=== PATIENT | male | born 1965 | race Caucasian/White ===

== ENCOUNTER 2021-01-07 11:29 | Inpatient (IN) | payer BC ==
[~2021-01-07] VITALS: Ht 180.3 cm; Wt 109.3 kg
[2021-01-07 11:15] VITALS: BP 140/91
[2021-01-07] MEDS ORDERED: MORPHINE SULFATE 4 MG/ML VIAL. IV PRN (11:45)
[2021-01-07] MEDS ORDERED: MORPHINE SULFATE 2 MG/ML VIAL. IVP PRN ×2 (12:15→14:45)
[2021-01-07] MEDS ORDERED: HYDROmorphone 2 MG/ML VIAL IVP PRN ×2 (12:15→14:45)
[2021-01-07] MEDS ORDERED: IV RINGERS,LACTATED 1000ML 1,000 ML IV SCH ×2 (12:15→14:45)
[2021-01-07] MEDS ORDERED: fentaNYL PF VIAL 100 MCG/2 ML VIAL IVP PRN ×4 (12:15→14:45)
[2021-01-07] MEDS ORDERED: PROCHLORPERAZINE 10 MG/2 ML VIAL. IVP PRN ×2 (12:15→14:45)
[2021-01-07] MEDS ORDERED: BUPIVACAINE-EPI 0.5% 30 ML VIAL KIT. ONE (13:59)
--- NOTE | 2021-01-07 15:00 | PDOC1 ---
History and Physical Date of Admission Date of Admission DATE: 01/07/21 TIME: 14:52 Identification/Chief Complaint Chief Complaint Appendicitis Source Source: Chart review, Patient History of Present Illness History of Present Illness Patient is a 55-year-old male with past medical history hypertension, hyperlipidemia, who presents as a transfer from [facility] ER for appendicitis. Patient reports worsening right lower quadrant abdominal pain since yesterday. He reports associated diarrhea. Denies any fever, nausea, vomiting. In the ED at [facility], WBC 10.7, CBG 111. Consult was placed to general surgery and patient was transferred for surgical intervention today. Past Medical History Past Medical History HLD, HTN Past Surgical History Past Surgical History Left fourth finger, right knee Family History Family History HTN, HLD Social History Smoke: No (Chewing tobacco) ALCOHOL: heavy Drugs: None Current Medications Current Medications Current Medications Morphine Sulfate (Morphine Sulfate) 4 mg PRN Q2HR PRN IV PAIN; Start 01/07/21 at 11:45 Fentanyl Citrate (Fentanyl 2ml Vial) 25 mcg PRN Q5MIN PRN IVP MILD PAIN 1-3; Start 01/07/21 at 12:15; Stop 01/08/21 at 12:14 Fentanyl Citrate (Fentanyl 2ml Vial) 50 mcg PRN Q5MIN PRN IVP MODERATE PAIN 4- 6; Start 01/07/21 at 12:15; Stop 01/08/21 at 12:14 Morphine Sulfate (Morphine Sulfate) 1 mg PRN Q10MIN PRN IVP SEVERE PAIN 7-10; Start 01/07/21 at 12:15; Stop 01/08/21 at 12:14 Ringer's Solution 1,000 ml @ 30 mls/hr Q24H IV ; Start 01/07/21 at 12:15; Stop 01/08/21 at 00:14 Hydromorphone HCl (Dilaudid) 0.5 mg PRN Q10MIN PRN IVP SEVERE PAIN 7-10, 2nd CHOICE; Start 01/07/21 at 12:15; Stop 01/08/21 at 12:14 Prochlorperazine Edisylate (Compazine) 5 mg PACU PRN PRN IVP NAUSEA, MRX1; Start 01/07/21 at 12:15; Stop 01/08/21 at 12:14 Fentanyl Citrate (Fentanyl 2ml Vial) 25 mcg PRN Q5MIN PRN IVP MILD PAIN 1-3; Start 01/07/21 at 14:45; Stop 01/08/21 at 14:44 Fentanyl Citrate (Fentanyl 2ml Vial) 50 mcg PRN Q5MIN PRN IVP MODERATE PAIN 4- 6; Start 01/07/21 at 14:45; Stop 01/08/21 at 14:44 Morphine Sulfate (Morphine Sulfate) 1 mg PRN Q10MIN PRN IVP SEVERE PAIN 7-10; Start 01/07/21 at 14:45; Stop 01/08/21 at 14:44 Ringer's Solution 1,000 ml @ 30 mls/hr Q24H IV ; Start 01/07/21 at 14:45; Stop 01/08/21 at 02:44 Hydromorphone HCl (Dilaudid) 0.5 mg PRN Q10MIN PRN IVP SEVERE PAIN 7-10, 2nd CHOICE; Start 01/07/21 at 14:45; Stop 01/08/21 at 14:44 Prochlorperazine Edisylate (Compazine) 5 mg PACU PRN PRN IVP NAUSEA, MRX1; Start 01/07/21 at 14:45; Stop 01/08/21 at 14:44 Allergies Allergies: Coded Allergies: No Known Drug Allergies (Unverified , 01/07/21) ROS Review of System GENERAL: No history of weight change, weakness or fevers. SKIN: No bruising, hair changes or rashes. EYES: No blurred, double or loss of vision. NOSE AND THROAT: No history of nosebleeds, hoarseness or sore throat. HEART: Denies chest pain, denies palpitations. LUNGS: Denies cough, hemoptysis, wheezing or shortness of breath. GASTROINTESTINAL: Jorge A pain, diarrhea. Denies nausea, vomiting. GENITOURINARY: Denies dysuria, frequency, urgency, hematuria. NEUROLOGIC: Denies history of numbness, tingling, tremor or weakness. PSYCHIATRIC: Denies anxiety, denies depression. ENDOCRINE: No history of heat or cold intolerance, polyuria or polydipsia. EXTREMITIES: Denies muscle weakness, joint pain, pain on walking or stiffness. Physical Exam Physical Exam General: Alert, Oriented X3, Cooperative, No acute distress HEENT: PERRLA, EOMI Lungs: Clear to auscultation, Normal air movement Heart: RRR, no murmurs Cardiovascular: S1, S2 Abdomen: Right lower quadrant abdominal tenderness. Normal bowel sounds, Soft. Extremities: No clubbing, No cyanosis Skin: No rashes, No significant lesion Neuro: Normal speech, Normal tone, Sensation intact Psych/Mental Status: Mental status NL, Mood NL Vitals Vitals Vital Signs Date Time Temp Pulse Resp B/P (MAP) Pulse Ox O2 Delivery O2 Flow Rate FiO2 01/07/21 14:38 97.2 70 26 151/85 95 Room Air 97.2 Images Images PATIENT: KIRILL BIRSCOE I ACCOUNT: [id number] : 1965 LOCATION: ER AGE: 55 SEX: M EXAM STATUS: REG ER ORD. PHYSICIAN: EVELYN HARPER MD REASON: RLQ pain onset last night, nausea/vomiting. 75mls omni 300 PROCEDURE: CT ABD PELV W/ IV CONTRST ONLY EXAMINATION: CT abdomen and pelvis with IV contrast. INDICATION:55 years, Male, right lower quadrant abdominal pain. TECHNIQUE: Axial CT images of the abdomen and pelvis were obtained. Coronal and sagittal reformatted performed. COMPARISON: None. Exposure: One or more of the following individualized dose reduction techniques were utilized for this examination: 1. Automated exposure control 2. Adjustment of the mA and/or kV according to patient size 3. Use of iterative reconstruction technique. FINDINGS: LOWER CHEST: Unremarkable ABDOMEN/PELVIS: Normal morphology and size of the liver which is enhancement. Diffuse steatosis. No suspicious focal hepatic lesion. Unremarkable gallbladder, biliary ducts, spleen, pancreas, adrenals and kidneys. Diffuse thickened appendix with 6 mm appendicolith and periappendicular fat stranding and trace amount of fluid. No extraluminal gas suggest perforation. No fluid collection to suggest abscess. No bowel dilation. Mild cecal wall, likely reactive. Few colonic diverticulosis without diverticulitis. Normal caliber abdominal aorta. Mesenteric arteries and portal vein are patent. No pneumoperitoneum or ascites. No lymphadenopathy in the abdomen or pelvis by s ize criteria. Underdistended urinary bladder which limits evaluation. Unremarkable prostate. No suspicious pelvic masses. MUSCULOSKELETAL: Small fat-containing umbilical and right inguinal hernias. Surgical clips in the left inguinal canal. No acute osseous process. Bilateral L5 pars defect. Multilevel degenerative changes in the spine. IMPRESSION: 1. Acute uncomplicated appendicitis with appendicolith. 2. Diffuse hepatic steatosis. 3. Other chronic/incidental findings, as described above. VTE Prophylaxis Ordered VTE Prophylaxis Devices: No VTE Pharmacological Prophylaxi: Yes Assessment/Plan Assessment/Plan Acute appendicitis HTN HLD Plan: Consult placed to general surgery; plans to be taken to the OR today N.p.o. until surgery Patient states pain currently well controlled with Toradol he received at [facility] ER; will provide postop pain medication. During any setbacks patient may be able to discharge tomorrow Resume home medications FEN - NPO, then ADAT PPX - Heparin FULL CODE Dispo - inpatient for above Advance Care Planning: Total time spent [id number] with patient 16 minutes in discussion with goals of care, comfort care, end-of-life care, pain management, code status; patient names is significant other (Aant Smith) as surrogate decision-maker. Justifications for Admission Other Justification OLIVIA CASANOVA MD Jan 07, 2021 15:00
[2021-01-07] MEDS ORDERED: HYDROcodone/APAP 5/325MG 1 TAB TABLET PO PRN (15:15)
[2021-01-07] MEDS ORDERED: ZOLPIDEM 5 MG TABLET. PO PRN (15:15)
[2021-01-07] MEDS ORDERED: IBUPROFEN 400 MG TABLET. PO PRN (15:15)
[2021-01-07] MEDS ORDERED: ONDANSETRON PF 4 MG/2 ML VIAL. IVP PRN (15:15)
[2021-01-07] MEDS ORDERED: ROCURONIUM 50 MG/5 ML VIAL. ONE (15:15)
[2021-01-07] MEDS ORDERED: ACETAMINOPHEN 325 MG TABLET. PO PRN (15:15)
[2021-01-07] MEDS ORDERED: MAG HYDROX/ALUMINUM HYD/SIMETH 30 ML ORAL.SUSP PO PRN (15:15)
[2021-01-07] MEDS ORDERED: fentaNYL PF VIAL 100 MCG/2 ML VIAL ONE (15:15)
[2021-01-07] MEDS ORDERED: MAGNESIUM HYDROXIDE 2,400 MG/30 ML ORAL.SUSP. PO PRN (15:15)
[2021-01-07] MEDS ORDERED: CALCIUM CARBONATE 500 MG TAB.CHEW PO PRN (15:15)
[2021-01-07] MEDS ORDERED: LABETALOL 20 MG/4 ML DISP.SYRIN. IVP PRN (15:15)
--- NOTE | 2021-01-07 15:36 | PDOC2 ---
CONSULT Date of Consult Date of Consult DATE: 01/07/21 TIME: 15:35 History of Present Illness Reason for Visit: The patient is a 55 year old male who reported to the ER at [facility] due to abdominal pain starting yesterday. The pain is located in the RLQ, The evaluation is consistent with appendicitis and he was transferred to [place]. Past Medical History Cardiovascular: HTN, Hyperlipidemia, Other (obesity) Past Surgical History Past Surgical History no abdominal surgeries Social History No (Chewing tobacco) ALCOHOL: heavy Drugs: None Current Medications Current Medications Current Medications Morphine Sulfate (Morphine Sulfate) 4 mg PRN Q2HR PRN IV PAIN; Start 01/07/21 at 11:45 Fentanyl Citrate (Fentanyl 2ml Vial) 25 mcg PRN Q5MIN PRN IVP MILD PAIN 1-3; Start 01/07/21 at 12:15; Stop 01/08/21 at 12:14 Fentanyl Citrate (Fentanyl 2ml Vial) 50 mcg PRN Q5MIN PRN IVP MODERATE PAIN 4- 6; Start 01/07/21 at 12:15; Stop 01/08/21 at 12:14 Morphine Sulfate (Morphine Sulfate) 1 mg PRN Q10MIN PRN IVP SEVERE PAIN 7-10; Start 01/07/21 at 12:15; Stop 01/08/21 at 12:14 Ringer's Solution 1,000 ml @ 30 mls/hr Q24H IV ; Start 01/07/21 at 12:15; Stop 01/08/21 at 00:14 Hydromorphone HCl (Dilaudid) 0.5 mg PRN Q10MIN PRN IVP SEVERE PAIN 7-10, 2nd CHOICE; Start 01/07/21 at 12:15; Stop 01/08/21 at 12:14 Prochlorperazine Edisylate (Compazine) 5 mg PACU PRN PRN IVP NAUSEA, MRX1; Start 01/07/21 at 12:15; Stop 01/08/21 at 12:14 Fentanyl Citrate (Fentanyl 2ml Vial) 25 mcg PRN Q5MIN PRN IVP MILD PAIN 1-3; Start 01/07/21 at 14:45; Stop 01/08/21 at 14:44 Fentanyl Citrate (Fentanyl 2ml Vial) 50 mcg PRN Q5MIN PRN IVP MODERATE PAIN 4- 6; Start 01/07/21 at 14:45; Stop 01/08/21 at 14:44 Morphine Sulfate (Morphine Sulfate) 1 mg PRN Q10MIN PRN IVP SEVERE PAIN 7-10; Start 01/07/21 at 14:45; Stop 01/08/21 at 14:44 Ringer's Solution 1,000 ml @ 30 mls/hr Q24H IV ; Start 01/07/21 at 14:45; Stop 01/08/21 at 02:44 Hydromorphone HCl (Dilaudid) 0.5 mg PRN Q10MIN PRN IVP SEVERE PAIN 7-10, 2nd CHOICE; Start 01/07/21 at 14:45; Stop 01/08/21 at 14:44 Prochlorperazine Edisylate (Compazine) 5 mg PACU PRN PRN IVP NAUSEA, MRX1; Start 01/07/21 at 14:45; Stop 01/08/21 at 14:44 Ondansetron HCl (Zofran) 4 mg PRN Q6HRS PRN IVP NAUSEA/VOMITING; Start 01/07/21 at 15:15 Al Hydroxide/Mg Hydroxide (Mylanta Plus Xs) 30 ml PRN Q3HRS PRN PO HEARTBURN / GAS; Start 01/07/21 at 15:15 Calcium Carbonate/ Glycine (Tums) 500 mg PRN Q3HRS PRN PO UPSET STOMACH; Start 01/07/21 at 15:15 Zolpidem Tartrate (Ambien) 5 mg PRN QHS PRN PO INSOMNIA, MAY REPEAT IN 1HR; S tart 01/07/21 at 15:15 Morphine Sulfate (Morphine Sulfate) 2 mg PRN Q1HR PRN IV PAIN; Start 01/07/21 at 15:15 Acetaminophen/ Hydrocodone Bitart (Lortab 5/325) 1 tab PRN Q4HRS PRN PO PAIN; Start 01/07/21 at 15:15 Acetaminophen (Tylenol) 650 mg PRN Q6HRS PRN PO Headaches, Temp > 101.5F; Start 01/07/21 at 15:15 Ibuprofen (Motrin) 400 mg PRN Q6HRS PRN PO INFLAMMATION; Start 01/07/21 at 15:15 Magnesium Hydroxide (Milk Of Magnesia) 2,400 mg PRN Q12HR PRN PO CONSTIPATION; Start 01/07/21 at 15:15 Heparin Sodium (Porcine) (Heparin Sodium) 5,000 unit Q8HRS SQ ; Start 01/08/21 at 06:00 Labetalol HCl (Normodyne Iv Push) 10 mg PRN Q2HR PRN IVP HYPERTENSION; Start 01/07/21 at 15:15 Allergies Allergies: Coded Allergies: No Known Drug Allergies (Unverified , 01/07/21) ROS General: YES: Night Sweats PSYCHOLOGICAL ROS: No: Anxiety, Behavioral Disorder, Concentration difficultie, Decreased libido, Depression, Disorientation, Hallucinations, Hostility, Irritablity, Memory difficulties, Mood Swings, Obsessive thoughts, Physical abuse, Sexual abuse, Sleep disturbances, Suicidal ideation, Other Eyes: No Blurry vision, No Decreased vision, No Double vision, No Dry eyes, No Excessive tearing, No Eye Pain, No Itchy Eyes, No Loss of vision, No Photophobia, No Scotomata, No Uses contacts, No Uses glasses, No Other HEENT: No: Heacaches, Visual Changes, Hearing change, Nasal congestion, Nasal discharge, Oral lesions, Sinus pain, Sore Throat, Epistaxis, Sneezing, Snoring, Tinnitus, Vertigo, Vocal changes, Other ALLERGY AND IMMUNOLOGY: No: Hives, Insect Bite Sensitivity, Itchy/Watery Eyes, Nasal Congestion, Post Nasal Drip, Seasonal Allergies, Other Hematological and Lymphatic: No: Bleeding Problems, Blood Clots, Blood Transfusions, Brusing, Night Sweats, Pallor, Swollen Lymph Nodes, Other ENDOCRINE: No: Breast Changes, Galactorrhea, Hair Pattern Changes, Hot Flashes, Malaise/lethargy, Mood Swings, Palpitations, Polydipsia/polyuria, Skin Changes, Temperature Intolerance, Unexpected Weight Changes, Other Gastrointestinal: No Nausea, No Vomiting, No Abdominal Pain, No Diarrhea, No Constipation, No Melena, No Hematochezia, No Other Genitourinary: No Dysuria, No Frequency, No Incontinence, No Hematuria, No Retention, No Discharge, No Urgency, No Pain, No Flank Pain, No Other, No , No , No , No , No , No , No Musculoskeletal: No Gait Disturbance, No Joint Pain, No Joint Stiffness, No Joint Swelling, No Muscle Pain, No Muscular Weakness, No Pain In:, No Swelling In:, No Other Neurological: No Behavorial Changes, No Bowel/Bladder ControlChng, No Confusion, No Dizziness, No Gait Disturbance, No Headaches, No Impaired Coord/balance, No Memory Loss, No Numbness/Tingling, No Seizures, No Speech Problems, No Tremors, No Visual Changes, No Weakness, No Other Skin: No Dry Skin, No Eczema, No Hair Changes, No Lumps, No Mole Changes, No Mottling, No Nail Changes, No Pruritus, No Rash, No Skin Lesion Changes, No Other, No Acne Physical Exam General: Alert, Oriented X3, Cooperative HEENT: Atraumatic Lungs: Clear to auscultation Abdomen: Soft (tender in RLQ) Extremities: No clubbing, No cyanosis Skin: No rashes Neuro: Normal speech Psych/Mental Status: Mental status NL MUSCULOSKELETAL: No deformity Vitals VITALS Vital Signs Date Time Temp Pulse Resp B/P (MAP) Pulse Ox O2 Delivery O2 Flow Rate FiO2 01/07/21 14:38 97.2 70 26 151/85 95 Room Air 97.2 Assessment/Plan Assessment/Plan RLQ pain, evaluation consistent with acute appendicitis. Plan to OR for appendectomy. The details and risks of surgery were discussed with the patient. He understands and would like to proceed. EVERTON DUBON MD Jan 07, 2021 15:36
[2021-01-07] MEDS ORDERED: LOSA50TA15 PO (16:01)
[2021-01-07] MEDS ORDERED: PROPOFOL 10 MG/ML (20ML) VIAL. IV ONE (16:04)
[2021-01-07] MEDS ORDERED: ONDANSETRON PF 4 MG/2 ML VIAL. ONE (16:04)
[2021-01-07] MEDS ORDERED: LIDOCAINE 2% PF 5 ML VIAL. ONE (16:04)
[2021-01-07] MEDS ORDERED: DEXAMETHASONE SOD PHOS 4 MG/ML VIAL ONE (16:04)
[2021-01-07] MEDS ORDERED: SEVOFLURANE 61 TO 120 MINUTES. IH ONE (16:04)
[2021-01-07] MEDS ORDERED: BUPIVACAINE-EPI 0.5% 30 ML VIAL KIT. INJ ONE (16:10)
[2021-01-07] MEDS ORDERED: GLYCOPYRROLATE 1 MG/5 ML VIAL. ONE (16:16)
[2021-01-07] MEDS ORDERED: NEOSTIGMINE METHYLSULFATE 5 MG/5 ML SYRINGE. ONE (16:16)
--- NOTE | 2021-01-07 16:23 | PDOC4 ---
Operative Note Operative Note Preoperative Diagnosis: Acute Appendicitis Postoperative Diagnosis: Same Procedure: Laparoscopic appendectomy Surgeon: Pedro Anesthesia: Gen. EBL: 10 mL Specimen: Appendix to pathology Drains: None Complications: None Indication: The patient is a 55-year-old male who reported to the emergency department with abdominal pain. The evaluation is consistent with acute appendicitis. The patient was offered surgical treatment with a laparoscopic appendectomy. The risks of surgery were discussed which include bleeding, infection, visceral injury, pain, anesthetic risk, potential need for additional surgery or procedure. The patient understands and would like to proceed. Description: The patient was taken to the operating room and placed supine on the operating table. Gen. anesthesia was performed. The abdomen was prepped with ChloraPrep and draped in a standard surgical manner. A supraumbilical incision was made through which a veress needle was inserted and a pneumoperitoneum was created. A visualized 5 mm trocar was inserted and the laparoscope was introd uced. In the left lower quadrant a 5 mm trocar was inserted. In the suprapubic region a 12 mm trocar was inserted. The appendix was identified and appeared inflamed consistent with acute appendicitis. There was no clear evidence of perforation or periappendiceal abscess. The mesoappendix was bluntly from the appendix. The mesoappendix was controlled using several clips and it was divided. The appendix was then amputated off the cecum using an Endo ANA 45 stapling device. The appendix was then placed in an endoscopic bag and extracted at the suprapubic incision site. The fascia there was closed with 0 Vicryl and infiltrated with half percent Marcaine with epinephrine. The RLQ was visualized and the staple line appeared well intact and hemostasis was good. No other abnormalities were identified grossly. The remaining ports were removed and the pneumoperitoneum was relieved. The skin at all incision sites was closed with 4- 0 Monocryl. Steri-Strips and dressings were applied. The patient tolerated the procedure well and was sent to the recovery room in stable condition. At the end of the case all counts were correct. EVERTON DUBON MD Jan 07, 2021 16:23
[2021-01-07] MEDS ORDERED: oxyCODONE/APAP 5/325 1 TAB TABLET PO PRN ×2 (16:30)
[2021-01-07] MEDS ORDERED: MORPHINE SULFATE 2 MG/ML VIAL. ONE (16:51)
[2021-01-07] MEDS ORDERED: PROCHLORPERAZINE 10 MG/2 ML VIAL. ONE (16:52)
[2021-01-07] MEDS: MORPHINE SULFATE 2 MG/ML VIAL. IV PRN ×2 (16:55→17:46)
[2021-01-07 19:00] VITALS: BP 109/69
[2021-01-07 23:00] VITALS: BP 104/68
[2021-01-08 03:00] VITALS: BP 117/71
[2021-01-08 05:34] LABS: BASO % 0 % (0-3); EOS # 0.1 x10^3/uL (0.0-0.7); EOS % 1 % (0-3); HEMATOCRIT 39.9 % (39.0-53.0); HEMOGLOBIN 13.5 g/dL (13.0-17.5); LYMPH # 0.6 x10^3/uL (1.0-4.8); LYMPH % 6 % (24-48); MEAN CORPUSCULAR HEMOGLOBIN 32 pg (25-35); MEAN CORPUSCULAR HGB CONC 34 g/dL (31-37); MEAN CORPUSCULAR VOLUME 94 fL (79-100); MONO # 0.5 x10^3/uL (0.0-1.1); MONO % 5 % (0-9); NEUT # 9.9 x10^3/uL (1.8-7.7); NEUT % 89 % (31-73); PLATELET COUNT 180 x10^3/uL (140-400); RED BLOOD COUNT 4.25 x10^6/uL (4.30-5.70); RED CELL DISTRIBUTION WIDTH 12.8 % (11.5-14.5); WHITE BLOOD COUNT 11.2 x10^3/uL (4.0-11.0)
[2021-01-08] MEDS ORDERED: HEPARIN for SUB-Q USE 5,000 UNIT/ML VIAL. SQ SCH (06:00)
[2021-01-08 06:29] LABS: CALCIUM 8.4 mg/dL (8.5-10.1); GFR 78.2; POTASSIUM 4.4 mmol/L (3.5-5.1)
[2021-01-08 07:00] VITALS: BP 109/74
--- NOTE | 2021-01-08 09:40 | NUR ---
SW following. Discussed with RN, pt from home, room air, NPO. Pt had surgery 01/07/21. Per RN pt wanting to go home today. RN advised no SW needs at this time. SW will continue to follow.
--- NOTE | 2021-01-08 10:29 | PDOC ---
SURGICAL PROGRESS NOTE DATE: 01/08/21 TIME: 10:26 Subjective tolerating diet no n/v urinating well minimal pain Vital Signs Vital Signs Date Time Temp Pulse Resp B/P (MAP) Pulse Ox O2 Delivery O2 Flow Rate FiO2 01/08/21 07:35 Room Air 01/08/21 07:00 98.5 69 18 109/74 (86) 92 98.5 01/07/21 17:46 2.0 I&O Intake and Output 01/08/21 07:00 Intake Total 2640 ml Output Total 635 ml Balance 2005 ml Intake Oral 640 ml IV Total 2000 ml Output Urine Total 625 ml Estimated Blood Loss 10 ml # Voids 1 General: Alert, Oriented X3, Cooperative Abdomen: Soft, Other (lap dressings dry) Labs Laboratory Tests Test 01/08/21 04:40 White Blood Count 11.2 x10^3/uL (4.0-11.0) Red Blood Count 4.25 x10^6/uL (4.30-5.70) Hemoglobin 13.5 g/dL (13.0-17.5) Hematocrit 39.9 % (39.0-53.0) Mean Corpuscular Volume 94 fL (79-100) Mean Corpuscular Hemoglobin 32 pg (25-35) Mean Corpuscular Hemoglobin Concent 34 g/dL (31-37) Red Cell Distribution Width 12.8 % (11.5-14.5) Platelet Count 180 x10^3/uL (140-400) Neutrophils (%) (Auto) 89 % (31-73) Lymphocytes (%) (Auto) 6 % (24-48) Monocytes (%) (Auto) 5 % (0-9) Eosinophils (%) (Auto) 1 % (0-3) Basophils (%) (Auto) 0 % (0-3) Neutrophils # (Auto) 9.9 x10^3/uL (1.8-7.7) Lymphocytes # (Auto) 0.6 x10^3/uL (1.0-4.8) Monocytes # (Auto) 0.5 x10^3/uL (0.0-1.1) Eosinophils # (Auto) 0.1 x10^3/uL (0.0-0.7) Basophils # (Auto) 0.0 x10^3/uL (0.0-0.2) Sodium Level 141 mmol/L (136-145) Potassium Level 4.4 mmol/L (3.5-5.1) Chloride Level 104 mmol/L (98-107) Carbon Dioxide Level 24 mmol/L (21-32) Anion Gap 13 (6-14) Blood Urea Nitrogen 11 mg/dL (8-26) Creatinine 1.0 mg/dL (0.7-1.3) Estimated GFR (Cockcroft-Gault) 78.2 Glucose Level 113 mg/dL (70-99) Calcium Level 8.4 mg/dL (8.5-10.1) Laboratory Tests Test 01/08/21 04:40 White Blood Count 11.2 x10^3/uL (4.0-11.0) Red Blood Count 4.25 x10^6/uL (4.30-5.70) Hemoglobin 13.5 g/dL (13.0-17.5) Hematocrit 39.9 % (39.0-53.0) Mean Corpuscular Volume 94 fL (79-100) Mean Corpuscular Hemoglobin 32 pg (25-35) Mean Corpuscular Hemoglobin Concent 34 g/dL (31-37) Red Cell Distribution Width 12.8 % (11.5-14.5) Platelet Count 180 x10^3/uL (140-400) Neutrophils (%) (Auto) 89 % (31-73) Lymphocytes (%) (Auto) 6 % (24-48) Monocytes (%) (Auto) 5 % (0-9) Eosinophils (%) (Auto) 1 % (0-3) Basophils (%) (Auto) 0 % (0-3) Neutrophils # (Auto) 9.9 x10^3/uL (1.8-7.7) Lymphocytes # (Auto) 0.6 x10^3/uL (1.0-4.8) Monocytes # (Auto) 0.5 x10^3/uL (0.0-1.1) Eosinophils # (Auto) 0.1 x10^3/uL (0.0-0.7) Basophils # (Auto) 0.0 x10^3/uL (0.0-0.2) Sodium Level 141 mmol/L (136-145) Potassium Level 4.4 mmol/L (3.5-5.1) Chloride Level 104 mmol/L (98-107) Carbon Dioxide Level 24 mmol/L (21-32) Anion Gap 13 (6-14) Blood Urea Nitrogen 11 mg/dL (8-26) Creatinine 1.0 mg/dL (0.7-1.3) Estimated GFR (Cockcroft-Gault) 78.2 Glucose Level 113 mg/dL (70-99) Calcium Level 8.4 mg/dL (8.5-10.1) Problem List s/p appy ok to md home FU 2 weeks Justicifation of Admission Dx: Justifications for Admission: Justification of Admission Dx: Yes Comments: appendicitis MAINOR DEL VALLE APRN Jan 08, 2021 10:29
[2021-01-08] MEDS ORDERED: HYDR-2761 PO (10:33)
--- NOTE | 2021-01-08 10:44 | PDOC ---
PROGRESS NOTES Date of Service: DATE: 01/08/21 TIME: 10:43 Chief Complaint Chief Complaint Assessment/Plan Assessment/Plan Acute appendicitis pod # 1 HTN HLD Plan: Consult placed to general surgery; plans to be taken to the OR today N.p.o. until surgery Patient states pain currently well controlled with Toradol he received at [facility] ER; will provide postop pain medication. During any setbacks patient may be able to discharge tomorrow Resume home medications FEN - NPO, then ADAT PPX - Heparin FULL CODE Dispo - inpatient for above s/p appy ok to vt home FU 2 weeks surgery Operative Note Operative Note Operative Note Preoperative Diagnosis: Acute Appendicitis Postoperative Diagnosis: Same Procedure: Laparoscopic appendectomy Surgeon: Pedro Anesthesia: Gen. EBL: 10 mL Specimen: Appendix to pathology Drains: None Complications: None d/c planning 34 min History of Present Illness History of Present Illness Identification/Chief Complaint Chief Complaint Appendicitis Source Source: Chart review, Patient History of Present Illness History of Present Illness Patient is a 55-year-old male with past medical history hypertension, hyperlipidemia, who presents as a transfer from [facility] ER for appendicitis. Patient reports worsening right lower quadrant abdominal pain since yesterday. He reports associated diarrhea. Denies any fever, nausea, vomiting. In the ED at [facility], WBC 10.7, CBG 111. Consult was placed to general surgery and patient was transferred for surgical intervention today. Past Medical History Past Medical History HLD, HTN Past Surgical History Past Surgical History Left fourth finger, right knee Family History Family History HTN, HLD Social History Smoke: No (Chewing tobacco) ALCOHOL: heavy Drugs: None Current Medications Current Medications Current Medications Morphine Sulfate (Morphine Sulfate) 4 mg PRN Q2HR PRN IV PAIN; Start 01/07/21 at 11:45 Fentanyl Citrate (Fentanyl 2ml Vial) 25 mcg PRN Q5MIN PRN IVP MILD PAIN 1-3; Start 01/07/21 at 12:15; Stop 01/08/21 at 12:14 Fentanyl Citrate (Fentanyl 2ml Vial) 50 mcg PRN Q5MIN PRN IVP MODERATE PAIN 4- 6; Start 01/07/21 at 12:15; Stop 01/08/21 at 12:14 Morphine Sulfate (Morphine Sulfate) 1 mg PRN Q10MIN PRN IVP SEVERE PAIN 7-10; Start 01/07/21 at 12:15; Stop 01/08/21 at 12:14 Ringer's Solution 1,000 ml @ 30 mls/hr Q24H IV ; Start 01/07/21 at 12:15; Stop 01/08/21 at 00:14 Hydromorphone HCl (Dilaudid) 0.5 mg PRN Q10MIN PRN IVP SEVERE PAIN 7-10, 2nd CHOICE; Start 01/07/21 at 12:15; Stop 01/08/21 at 12:14 Prochlorperazine Edisylate (Compazine) 5 mg PACU PRN PRN IVP NAUSEA, MRX1; Start 01/07/21 at 12:15; Stop 01/08/21 at 12:14 Fentanyl Citrate (Fentanyl 2ml Vial) 25 mcg PRN Q5MIN PRN IVP MILD PAIN 1-3; Start 01/07/21 at 14:45; Stop 01/08/21 at 14:44 Fentanyl Citrate (Fentanyl 2ml Vial) 50 mcg PRN Q5MIN PRN IVP MODERATE PAIN 4- 6; Start 01/07/21 at 14:45; Stop 01/08/21 at 14:44 Morphine Sulfate (Morphine Sulfate) 1 mg PRN Q10MIN PRN IVP SEVERE PAIN 7-10; Start 01/07/21 at 14:45; Stop 01/08/21 at 14:44 Ringer's Solution 1,000 ml @ 30 mls/hr Q24H IV ; Start 01/07/21 at 14:45; Stop 01/08/21 at 02:44 Hydromorphone HCl (Dilaudid) 0.5 mg PRN Q10MIN PRN IVP SEVERE PAIN 7-10, 2nd CHOICE; Start 01/07/21 at 14:45; Stop 01/08/21 at 14:44 Prochlorperazine Edisylate (Compazine) 5 mg PACU PRN PRN IVP NAUSEA, MRX1; Start 01/07/21 at 14:45; Stop 01/08/21 at 14:44 Allergies Allergies: Coded Allergies: No Known Drug Allergies (Unverified , 01/07/21) ROS Review of System GENERAL: No history of weight change, weakness or fevers. SKIN: No bruising, hair changes or rashes. EYES: No blurred, double or loss of vision. NOSE AND THROAT: No history of nosebleeds, hoarseness or sore throat. HEART: Denies chest pain, denies palpitations. LUNGS: Denies cough, hemoptysis, wheezing or shortness of breath. GASTROINTESTINAL: Jorge A pain, diarrhea. Denies nausea, vomiting. GENITOURINARY: Denies dysuria, frequency, urgency, hematuria. NEUROLOGIC: Denies history of numbness, tingling, tremor or weakness. PSYCHIATRIC: Denies anxiety, denies depression. ENDOCRINE: No history of heat or cold intolerance, polyuria or polydipsia. EXTREMITIES: Denies muscle weakness, joint pain, pain on walking or stiffness. Vitals Vitals Vital Signs Date Time Temp Pulse Resp B/P (MAP) Pulse Ox O2 Delivery O2 Flow Rate FiO2 01/08/21 07:35 Room Air 01/08/21 07:00 98.5 69 18 109/74 (86) 92 98.5 01/07/21 17:46 2.0 Physical Exam General: Alert, Oriented X3, Cooperative, No acute distress Heart: Regular rate, Normal S1, Normal S2 Lungs: Clear Abdomen: Soft, Other (lap dressings dry) Extremities: No clubbing, No cyanosis Skin: No rashes Labs LABS Laboratory Tests Test 01/08/21 04:40 White Blood Count 11.2 x10^3/uL (4.0-11.0) Red Blood Count 4.25 x10^6/uL (4.30-5.70) Hemoglobin 13.5 g/dL (13.0-17.5) Hematocrit 39.9 % (39.0-53.0) Mean Corpuscular Volume 94 fL (79-100) Mean Corpuscular Hemoglobin 32 pg (25-35) Mean Corpuscular Hemoglobin Concent 34 g/dL (31-37) Red Cell Distribution Width 12.8 % (11.5-14.5) Platelet Count 180 x10^3/uL (140-400) Neutrophils (%) (Auto) 89 % (31-73) Lymphocytes (%) (Auto) 6 % (24-48) Monocytes (%) (Auto) 5 % (0-9) Eosinophils (%) (Auto) 1 % (0-3) Basophils (%) (Auto) 0 % (0-3) Neutrophils # (Auto) 9.9 x10^3/uL (1.8-7.7) Lymphocytes # (Auto) 0.6 x10^3/uL (1.0-4.8) Monocytes # (Auto) 0.5 x10^3/uL (0.0-1.1) Eosinophils # (Auto) 0.1 x10^3/uL (0.0-0.7) Basophils # (Auto) 0.0 x10^3/uL (0.0-0.2) Sodium Level 141 mmol/L (136-145) Potassium Level 4.4 mmol/L (3.5-5.1) Chloride Level 104 mmol/L (98-107) Carbon Dioxide Level 24 mmol/L (21-32) Anion Gap 13 (6-14) Blood Urea Nitrogen 11 mg/dL (8-26) Creatinine 1.0 mg/dL (0.7-1.3) Estimated GFR (Cockcroft-Gault) 78.2 Glucose Level 113 mg/dL (70-99) Calcium Level 8.4 mg/dL (8.5-10.1) Comment Review of Relevant I have reviewed the following items gladis (where applicable) has been applied. Labs Laboratory Tests Test 01/08/21 04:40 White Blood Count 11.2 x10^3/uL (4.0-11.0) Red Blood Count 4.25 x10^6/uL (4.30-5.70) Hemoglobin 13.5 g/dL (13.0-17.5) Hematocrit 39.9 % (39.0-53.0) Mean Corpuscular Volume 94 fL (79-100) Mean Corpuscular Hemoglobin 32 pg (25-35) Mean Corpuscular Hemoglobin Concent 34 g/dL (31-37) Red Cell Distribution Width 12.8 % (11.5-14.5) Platelet Count 180 x10^3/uL (140-400) Neutrophils (%) (Auto) 89 % (31-73) Lymphocytes (%) (Auto) 6 % (24-48) Monocytes (%) (Auto) 5 % (0-9) Eosinophils (%) (Auto) 1 % (0-3) Basophils (%) (Auto) 0 % (0-3) Neutrophils # (Auto) 9.9 x10^3/uL (1.8-7.7) Lymphocytes # (Auto) 0.6 x10^3/uL (1.0-4.8) Monocytes # (Auto) 0.5 x10^3/uL (0.0-1.1) Eosinophils # (Auto) 0.1 x10^3/uL (0.0-0.7) Basophils # (Auto) 0.0 x10^3/uL (0.0-0.2) Sodium Level 141 mmol/L (136-145) Potassium Level 4.4 mmol/L (3.5-5.1) Chloride Level 104 mmol/L (98-107) Carbon Dioxide Level 24 mmol/L (21-32) Anion Gap 13 (6-14) Blood Urea Nitrogen 11 mg/dL (8-26) Creatinine 1.0 mg/dL (0.7-1.3) Estimated GFR (Cockcroft-Gault) 78.2 Glucose Level 113 mg/dL (70-99) Calcium Level 8.4 mg/dL (8.5-10.1) Laboratory Tests Test 01/08/21 04:40 White Blood Count 11.2 x10^3/uL (4.0-11.0) Red Blood Count 4.25 x10^6/uL (4.30-5.70) Hemoglobin 13.5 g/dL (13.0-17.5) Hematocrit 39.9 % (39.0-53.0) Mean Corpuscular Volume 94 fL (79-100) Mean Corpuscular Hemoglobin 32 pg (25-35) Mean Corpuscular Hemoglobin Concent 34 g/dL (31-37) Red Cell Distribution Width 12.8 % (11.5-14.5) Platelet Count 180 x10^3/uL (140-400) Neutrophils (%) (Auto) 89 % (31-73) Lymphocytes (%) (Auto) 6 % (24-48) Monocytes (%) (Auto) 5 % (0-9) Eosinophils (%) (Auto) 1 % (0-3) Basophils (%) (Auto) 0 % (0-3) Neutrophils # (Auto) 9.9 x10^3/uL (1.8-7.7) Lymphocytes # (Auto) 0.6 x10^3/uL (1.0-4.8) Monocytes # (Auto) 0.5 x10^3/uL (0.0-1.1) Eosinophils # (Auto) 0.1 x10^3/uL (0.0-0.7) Basophils # (Auto) 0.0 x10^3/uL (0.0-0.2) Sodium Level 141 mmol/L (136-145) Potassium Level 4.4 mmol/L (3.5-5.1) Chloride Level 104 mmol/L (98-107) Carbon Dioxide Level 24 mmol/L (21-32) Anion Gap 13 (6-14) Blood Urea Nitrogen 11 mg/dL (8-26) Creatinine 1.0 mg/dL (0.7-1.3) Estimated GFR (Cockcroft-Gault) 78.2 Glucose Level 113 mg/dL (70-99) Calcium Level 8.4 mg/dL (8.5-10.1) Medications Current Medications Morphine Sulfate (Morphine Sulfate) 4 mg PRN Q2HR PRN IV PAIN Last administered on 01/07/21at 19:56; Start 01/07/21 at 11:45 Fentanyl Citrate (Fentanyl 2ml Vial) 25 mcg PRN Q5MIN PRN IVP MILD PAIN 1-3; Start 01/07/21 at 12:15; Stop 01/08/21 at 00:54; Status DC Fentanyl Citrate (Fentanyl 2ml Vial) 50 mcg PRN Q5MIN PRN IVP MODERATE PAIN 4- 6; Start 01/07/21 at 12:15; Stop 01/08/21 at 00:54; Status DC Morphine Sulfate (Morphine Sulfate) 1 mg PRN Q10MIN PRN IVP SEVERE PAIN 7-10; Start 01/07/21 at 12:15; Stop 01/08/21 at 00:54; Status DC Ringer's Solution 1,000 ml @ 30 mls/hr Q24H IV Last administered on 01/07/21at 17:18; Start 01/07/21 at 12:15; Stop 01/08/21 at 00:14; Status DC Hydromorphone HCl (Dilaudid) 0.5 mg PRN Q10MIN PRN IVP SEVERE PAIN 7-10, 2nd CHOICE; Start 01/07/21 at 12:15; Stop 01/08/21 at 00:54; Status DC Prochlorperazine Edisylate (Compazine) 5 mg PACU PRN PRN IVP NAUSEA, MRX1 Last administered on 01/07/21at 16:56; Start 01/07/21 at 12:15; Stop 01/08/21 at 00:54; Status DC Fentanyl Citrate (Fentanyl 2ml Vial) 25 mcg PRN Q5MIN PRN IVP MILD PAIN 1-3; Start 01/07/21 at 14:45; Stop 01/08/21 at 00:54; Status DC Fentanyl Citrate (Fentanyl 2ml Vial) 50 mcg PRN Q5MIN PRN IVP MODERATE PAIN 4- 6; Start 01/07/21 at 14:45; Stop 01/08/21 at 00:54; Status DC Morphine Sulfate (Morphine Sulfate) 1 mg PRN Q10MIN PRN IVP SEVERE PAIN 7-10; Start 01/07/21 at 14:45; Stop 01/08/21 at 00:54; Status DC Ringer's Solution 1,000 ml @ 30 mls/hr Q24H IV ; Start 01/07/21 at 14:45; Stop 01/08/21 at 02:44; Status DC Hydromorphone HCl (Dilaudid) 0.5 mg PRN Q10MIN PRN IVP SEVERE PAIN 7-10, 2nd CHOICE; Start 01/07/21 at 14:45; Stop 01/08/21 at 00:54; Status DC Prochlorperazine Edisylate (Compazine) 5 mg PACU PRN PRN IVP NAUSEA, MRX1; Start 01/07/21 at 14:45; Stop 01/08/21 at 00:54; Status DC Ondansetron HCl (Zofran) 4 mg PRN Q6HRS PRN IVP NAUSEA/VOMITING; Start 01/07/21 at 15:15 Al Hydroxide/Mg Hydroxide (Mylanta Plus Xs) 30 ml PRN Q3HRS PRN PO HEARTBURN / GAS; Start 01/07/21 at 15:15 Calcium Carbonate/ Glycine (Tums) 500 mg PRN Q3HRS PRN PO UPSET STOMACH; Start 01/07/21 at 15:15 Zolpidem Tartrate (Ambien) 5 mg PRN QHS PRN PO INSOMNIA, MAY REPEAT IN 1HR; Start 01/07/21 at 15:15 Morphine Sulfate (Morphine Sulfate) 2 mg PRN Q1HR PRN IV PAIN Last administered on 01/07/21at 17:46; Start 01/07/21 at 15:15 Acetaminophen/ Hydrocodone Bitart (Lortab 5/325) 1 tab PRN Q4HRS PRN PO PAIN; Start 01/07/21 at 15:15 Acetaminophen (Tylenol) 650 mg PRN Q6HRS PRN PO Headaches, Temp > 101.5F; Start 01/07/21 at 15:15 Ibuprofen (Motrin) 400 mg PRN Q6HRS PRN PO INFLAMMATION Last administered on 01/08/21at 10:09; Start 01/07/21 at 15:15 Magnesium Hydroxide (Milk Of Magnesia) 2,400 mg PRN Q12HR PRN PO CONSTIPATION; Start 01/07/21 at 15:15 Heparin Sodium (Porcine) (Heparin Sodium) 5,000 unit Q8HRS SQ Last administered on 01/08/21at 06:34; Start 01/08/21 at 06:00 Labetalol HCl (Normodyne Iv Push) 10 mg PRN Q2HR PRN IVP HYPERTENSION; Start 01/07/21 at 15:15 Oxycodone/ Acetaminophen (Percocet 5/325) 1 tab PRN Q4HRS PRN PO PAIN; Start 01/07/21 at 16:30 Oxycodone/ Acetaminophen (Percocet 5/325) 2 tab PRN Q4HRS PRN PO PAIN; Start 01/07/21 at 16:30 Bupivacaine HCl/ Epinephrine Bitart (Sensorcain-Epi 0.5% Kit) 30 ml STK-MED ONCE INJ Last administered on 01/07/21at 16:10; Start 01/07/21 at 16:10; Stop 01/07/21 at 16:42; Status DC Active Scripts Active Hydrocodone-Apap 5-325 (Hydrocodone Bit/Acetaminophen) 1 Tab Tablet 1 Tab PO PRN Q4HRS PRN Reported Losartan Potassium 50 Mg Tablet 50 Mg PO DAILY Vitals/I & O Vital Sign - Last 24 Hours 01/07/21 01/07/21 01/07/21 01/07/21 11:15 14:38 16:31 16:31 Temp 98.2 97.2 97.6 98.2 97.2 97.6 Pulse 73 70 77 Resp 18 26 20 B/P (MAP) 140/91 (107) 151/85 182/64 Pulse Ox 94 95 99 O2 Delivery Room Air Room Air Mask Simple Mask O2 Flow Rate 10 10 01/07/21 01/07/21 01/07/21 01/07/21 16:46 16:55 17:01 17:16 Pulse 78 75 85 Resp 20 20 20 20 B/P (MAP) 174/77 125/55 133/70 Pulse Ox 100 99 87 95 O2 Delivery Simple Mask Room Air Room Air Nasal Cannula O2 Flow Rate 10 2 01/07/21 01/07/21 01/07/21 01/07/21 17:45 17:46 19:00 19:56 Temp 99.5 99.5 Pulse 88 Resp 16 14 B/P (MAP) 109/69 (82) Pulse Ox 95 95 93 O2 Delivery Nasal Cannula Nasal Cannula Room Air O2 Flow Rate 2.0 2.0 01/07/21 01/07/21 01/07/21 01/07/21 20:00 20:04 20:26 23:00 Temp 98.8 98.8 Pulse 90 Resp 14 16 16 B/P (MAP) 104/68 (80) Pulse Ox 91 O2 Delivery Room Air Room Air Room Air 01/08/21 01/08/21 01/08/21 03:00 07:00 07:35 Temp 98.8 98.5 98.8 98.5 Pulse 82 69 Resp 16 18 B/P (MAP) 117/71 (86) 109/74 (86) Pulse Ox 91 92 O2 Delivery Room Air Room Air Intake and Output 01/07/21 01/07/21 01/08/21 15:00 23:00 07:00 Intake Total 1000 ml 1640 ml Output Total 385 ml 250 ml Balance 615 ml 1390 ml Justicifation of Admission Dx: Justifications for Admission: Justification of Admission Dx: Yes LYLE WALL MD Jan 08, 2021 10:43
[2021-01-08 11:00] VITALS: BP 112/78
[2021-01-08 11:19] LABS: % BANDS 6 % (0-9); % LYMPHS 8 % (24-48); % MONOS 3 % (0-10); % SEGS 83 % (35-66); PLT ESTIMATE ADEQUATE (ADEQUATE)
[2021-01-08] MEDS ORDERED: DOCU-109 PO (11:49)
--- NOTE | 2021-01-08 11:56 | PDOC3 ---
Discharge Summary Date of Admission: Jan 07, 2021 Date of Discharge: Jan 08, 2021 Follow-Up: Other (1-2 weeks) Admitting Diagnosis comment: D/C MEDS SEE MAR PROCEDURE LISTED IN THIS NOTE CONSULTS GENERAL SURGERY COMPLICATIONS NONE D/C CONDITION GOOD PROGNOSIS EXCELLENT WITH COMPLIANCE DISCUSSED NEED TO REDUCE ALCOHOL INTAKE DISCHARGE DX Assessment/Plan Acute appendicitis pod # 1 HTN HLD MODERATE TO HEAVY ALCOHOL ABUSE Plan: Consult placed to general surgery; plans to be taken to the OR 6-23 N.p.o. until surgery Patient states pain currently well controlled with Toradol he received at [facility] ER; will provide postop pain medication. During any setbacks patient may be able to discharge tomorrow Resume home medications FEN - NPO, then ADAT PPX - Heparin FULL CODE Dispo - inpatient for above s/p appy ok to dc home FU 2 weeks surgery Operative Note Operative Note Operative Note Preoperative Diagnosis: Acute Appendicitis Postoperative Diagnosis: Same Procedure: Laparoscopic appendectomy Surgeon: Pedro Anesthesia: Gen. EBL: 10 mL Specimen: Appendix to pathology Drains: None Complications: None d/c planning 34 min History of Present Illness History of Present Illness Identification/Chief Complaint Chief Complaint Appendicitis Source Source: Chart review, Patient History of Present Illness History of Present Illness Patient is a 55-year-old male with past medical history hypertension, hyperlipi demia, who presents as a transfer from [facility] ER for appendicitis. Patient reports worsening right lower quadrant abdominal pain since yesterday. He reports associated diarrhea. Denies any fever, nausea, vomiting. In the ED at [facility], WBC 10.7, CBG 111. Consult was placed to general surgery and patient was transferred for surgical intervention today. Past Medical History Past Medical History HLD, HTN Past Surgical History Past Surgical History Left fourth finger, right knee Family History Family History HTN, HLD Social History Smoke: No (Chewing tobacco) ALCOHOL: heavy 2-3 BEERS A DAY, MORE ON WEEKENDS Drugs: None Current Medications Current Medications Current Medications Morphine Sulfate (Morphine Sulfate) 4 mg PRN Q2HR PRN IV PAIN; Start 01/07/21 at 11:45 Fentanyl Citrate (Fentanyl 2ml Vial) 25 mcg PRN Q5MIN PRN IVP MILD PAIN 1-3; Start 01/07/21 at 12:15; Stop 01/08/21 at 12:14 Fentanyl Citrate (Fentanyl 2ml Vial) 50 mcg PRN Q5MIN PRN IVP MODERATE PAIN 4- 6; Start 01/07/21 at 12:15; Stop 01/08/21 at 12:14 Morphine Sulfate (Morphine Sulfate) 1 mg PRN Q10MIN PRN IVP SEVERE PAIN 7-10; Start 01/07/21 at 12:15; Stop 01/08/21 at 12:14 Ringer's Solution 1,000 ml @ 30 mls/hr Q24H IV ; Start 01/07/21 at 12:15; Stop 01/08/21 at 00:14 Hydromorphone HCl (Dilaudid) 0.5 mg PRN Q10MIN PRN IVP SEVERE PAIN 7-10, 2nd CHOICE; Start 01/07/21 at 12:15; Stop 01/08/21 at 12:14 Prochlorperazine Edisylate (Compazine) 5 mg PACU PRN PRN IVP NAUSEA, MRX1; Start 01/07/21 at 12:15; Stop 01/08/21 at 12:14 Fentanyl Citrate (Fentanyl 2ml Vial) 25 mcg PRN Q5MIN PRN IVP MILD PAIN 1-3; Start 01/07/21 at 14:45; Stop 01/08/21 at 14:44 Fentanyl Citrate (Fentanyl 2ml Vial) 50 mcg PRN Q5MIN PRN IVP MODERATE PAIN 4- 6; Start 01/07/21 at 14:45; Stop 01/08/21 at 14:44 Morphine Sulfate (Morphine Sulfate) 1 mg PRN Q10MIN PRN IVP SEVERE PAIN 7-10; Start 01/07/21 at 14:45; Stop 01/08/21 at 14:44 Ringer's Solution 1,000 ml @ 30 mls/hr Q24H IV ; Start 01/07/21 at 14:45; Stop 01/08/21 at 02:44 Hydromorphone HCl (Dilaudid) 0.5 mg PRN Q10MIN PRN IVP SEVERE PAIN 7-10, 2nd CHOICE; Start 01/07/21 at 14:45; Stop 01/08/21 at 14:44 Prochlorperazine Edisylate (Compazine) 5 mg PACU PRN PRN IVP NAUSEA, MRX1; Start 01/07/21 at 14:45; Stop 01/08/21 at 14:44 Allergies Allergies: Coded Allergies: No Known Drug Allergies (Unverified , 01/07/21) ROS Review of System GENERAL: No history of weight change, weakness or fevers. SKIN: No bruising, hair changes or rashes. EYES: No blurred, double or loss of vision. NOSE AND THROAT: No history of nosebleeds, hoarseness or sore throat. HEART: Denies chest pain, denies palpitations. LUNGS: Denies cough, hemoptysis, wheezing or shortness of breath. GASTROINTESTINAL: Jorge A pain, diarrhea. Denies nausea, vomiting. GENITOURINARY: Denies dysuria, frequency, urgency, hematuria. NEUROLOGIC: Denies history of numbness, tingling, tremor or weakness. PSYCHIATRIC: Denies anxiety, denies depression. ENDOCRINE: No history of heat or cold intolerance, polyuria or polydipsia. EXTREMITIES: Denies muscle weakness, joint pain, pain on walking or stiffness. Vitals Vitals Vital Signs Date Time Temp Pulse Resp B/P (MAP) Pulse Ox O2 Delivery O2 Flow Rate FiO2 01/08/21 07:35 Room Air 01/08/21 07:00 98.5 69 18 109/74 (86) 92 98.5 01/07/21 17:46 2.0 Physical Exam General: Alert, Oriented X3, Cooperative, No acute distress Heart: Regular rate, Normal S1, Normal S2 Lungs: Clear Abdomen: Soft, Other (lap dressings dry) Extremities: No clubbing, No cyanosis Skin: No rashes Brief Hospital Course Mr. Ghotra is a 55 old [sex] who presented with [ ACUTE APPENDICITIS] CONDITION AT DISCHARGE: Improved Discharge Medications Current Medications Morphine Sulfate (Morphine Sulfate) 4 mg PRN Q2HR PRN IV PAIN Last administered on 01/07/21at 19:56; Start 01/07/21 at 11:45 Fentanyl Citrate (Fentanyl 2ml Vial) 25 mcg PRN Q5MIN PRN IVP MILD PAIN 1-3; Start 01/07/21 at 12:15; Stop 01/08/21 at 00:54; Status DC Fentanyl Citrate (Fentanyl 2ml Vial) 50 mcg PRN Q5MIN PRN IVP MODERATE PAIN 4- 6; Start 01/07/21 at 12:15; Stop 01/08/21 at 00:54; Status DC Morphine Sulfate (Morphine Sulfate) 1 mg PRN Q10MIN PRN IVP SEVERE PAIN 7-10; Start 01/07/21 at 12:15; Stop 01/08/21 at 00:54; Status DC Ringer's Solution 1,000 ml @ 30 mls/hr Q24H IV Last administered on 01/07/21at 17:18; Start 01/07/21 at 12:15; Stop 01/08/21 at 00:14; Status DC Hydromorphone HCl (Dilaudid) 0.5 mg PRN Q10MIN PRN IVP SEVERE PAIN 7-10, 2nd CHOICE; Start 01/07/21 at 12:15; Stop 01/08/21 at 00:54; Status DC Prochlorperazine Edisylate (Compazine) 5 mg PACU PRN PRN IVP NAUSEA, MRX1 Last administered on 01/07/21at 16:56; Start 01/07/21 at 12:15; Stop 01/08/21 at 00:54; Status DC Fentanyl Citrate (Fentanyl 2ml Vial) 25 mcg PRN Q5MIN PRN IVP MILD PAIN 1-3; Start 01/07/21 at 14:45; Stop 01/08/21 at 00:54; Status DC Fentanyl Citrate (Fentanyl 2ml Vial) 50 mcg PRN Q5MIN PRN IVP MODERATE PAIN 4- 6; Start 01/07/21 at 14:45; Stop 01/08/21 at 00:54; Status DC Morphine Sulfate (Morphine Sulfate) 1 mg PRN Q10MIN PRN IVP SEVERE PAIN 7-10; Start 01/07/21 at 14:45; Stop 01/08/21 at 00:54; Status DC Ringer's Solution 1,000 ml @ 30 mls/hr Q24H IV ; Start 01/07/21 at 14:45; Stop 01/08/21 at 02:44; Status DC Hydromorphone HCl (Dilaudid) 0.5 mg PRN Q10MIN PRN IVP SEVERE PAIN 7-10, 2nd CHOICE; Start 01/07/21 at 14:45; Stop 01/08/21 at 00:54; Status DC Prochlorperazine Edisylate (Compazine) 5 mg PACU PRN PRN IVP NAUSEA, MRX1; Start 01/07/21 at 14:45; Stop 01/08/21 at 00:54; Status DC Ondansetron HCl (Zofran) 4 mg PRN Q6HRS PRN IVP NAUSEA/VOMITING; Start 01/07/21 at 15:15 Al Hydroxide/Mg Hydroxide (Mylanta Plus Xs) 30 ml PRN Q3HRS PRN PO HEARTBURN / GAS; Start 01/07/21 at 15:15 Calcium Carbonate/ Glycine (Tums) 500 mg PRN Q3HRS PRN PO UPSET STOMACH; Start 01/07/21 at 15:15 Zolpidem Tartrate (Ambien) 5 mg PRN QHS PRN PO INSOMNIA, MAY REPEAT IN 1HR; Start 01/07/21 at 15:15 Morphine Sulfate (Morphine Sulfate) 2 mg PRN Q1HR PRN IV PAIN Last administered on 01/07/21at 17:46; Start 01/07/21 at 15:15 Acetaminophen/ Hydrocodone Bitart (Lortab 5/325) 1 tab PRN Q4HRS PRN PO PAIN; Start 01/07/21 at 15:15 Acetaminophen (Tylenol) 650 mg PRN Q6HRS PRN PO Headaches, Temp > 101.5F; Start 01/07/21 at 15:15 Ibuprofen (Motrin) 400 mg PRN Q6HRS PRN PO INFLAMMATION Last administered on 01/08/21at 10:09; Start 01/07/21 at 15:15 Magnesium Hydroxide (Milk Of Magnesia) 2,400 mg PRN Q12HR PRN PO CONSTIPATION; Start 01/07/21 at 15:15 Heparin Sodium (Porcine) (Heparin Sodium) 5,000 unit Q8HRS SQ Last administered on 01/08/21at 06:34; Start 01/08/21 at 06:00 Labetalol HCl (Normodyne Iv Push) 10 mg PRN Q2HR PRN IVP HYPERTENSION; Start 01/07/21 at 15:15 Oxycodone/ Acetaminophen (Percocet 5/325) 1 tab PRN Q4HRS PRN PO PAIN; Start 01/07/21 at 16:30 Oxycodone/ Acetaminophen (Percocet 5/325) 2 tab PRN Q4HRS PRN PO PAIN; Start 01/07/21 at 16:30 Bupivacaine HCl/ Epinephrine Bitart (Sensorcain-Epi 0.5% Kit) 30 ml STK-MED ONCE INJ Last administered on 01/07/21at 16:10; Start 01/07/21 at 16:10; Stop 01/07/21 at 16:42; Status DC Active Scripts Active Hydrocodone-Apap 5-325 (Hydrocodone Bit/Acetaminophen) 1 Tab Tablet 1 Tab PO PRN Q4HRS PRN Reported Colace (Docusate Sodium) 100 Mg Capsule 1 Cap PO BID PRN 30 Days Losartan Potassium 50 Mg Tablet 50 Mg PO DAILY Vital Signs Vital Signs Date Time Temp Pulse Resp B/P (MAP) Pulse Ox O2 Delivery O2 Flow Rate FiO2 01/08/21 11:00 98.2 62 18 112/78 (89) 96 Room Air 98.2 01/07/21 17:46 2.0 Labs Laboratory Tests Test 01/08/21 04:40 White Blood Count 11.2 x10^3/uL (4.0-11.0) Red Blood Count 4.25 x10^6/uL (4.30-5.70) Hemoglobin 13.5 g/dL (13.0-17.5) Hematocrit 39.9 % (39.0-53.0) Mean Corpuscular Volume 94 fL (79-100) Mean Corpuscular Hemoglobin 32 pg (25-35) Mean Corpuscular Hemoglobin Concent 34 g/dL (31-37) Red Cell Distribution Width 12.8 % (11.5-14.5) Platelet Count 180 x10^3/uL (140-400) Neutrophils (%) (Auto) 89 % (31-73) Lymphocytes (%) (Auto) 6 % (24-48) Monocytes (%) (Auto) 5 % (0-9) Eosinophils (%) (Auto) 1 % (0-3) Basophils (%) (Auto) 0 % (0-3) Neutrophils # (Auto) 9.9 x10^3/uL (1.8-7.7) Lymphocytes # (Auto) 0.6 x10^3/uL (1.0-4.8) Monocytes # (Auto) 0.5 x10^3/uL (0.0-1.1) Eosinophils # (Auto) 0.1 x10^3/uL (0.0-0.7) Basophils # (Auto) 0.0 x10^3/uL (0.0-0.2) Segmented Neutrophils % 83 % (35-66) Band Neutrophils % 6 % (0-9) Lymphocytes % 8 % (24-48) Monocytes % 3 % (0-10) Platelet Estimate Adequate (ADEQUATE) Sodium Level 141 mmol/L (136-145) Potassium Level 4.4 mmol/L (3.5-5.1) Chloride Level 104 mmol/L (98-107) Carbon Dioxide Level 24 mmol/L (21-32) Anion Gap 13 (6-14) Blood Urea Nitrogen 11 mg/dL (8-26) Creatinine 1.0 mg/dL (0.7-1.3) Estimated GFR (Cockcroft-Gault) 78.2 Glucose Level 113 mg/dL (70-99) Calcium Level 8.4 mg/dL (8.5-10.1) Laboratory Tests Test 01/08/21 04:40 White Blood Count 11.2 x10^3/uL (4.0-11.0) Red Blood Count 4.25 x10^6/uL (4.30-5.70) Hemoglobin 13.5 g/dL (13.0-17.5) Hematocrit 39.9 % (39.0-53.0) Mean Corpuscular Volume 94 fL (79-100) Mean Corpuscular Hemoglobin 32 pg (25-35) Mean Corpuscular Hemoglobin Concent 34 g/dL (31-37) Red Cell Distribution Width 12.8 % (11.5-14.5) Platelet Count 180 x10^3/uL (140-400) Neutrophils (%) (Auto) 89 % (31-73) Lymphocytes (%) (Auto) 6 % (24-48) Monocytes (%) (Auto) 5 % (0-9) Eosinophils (%) (Auto) 1 % (0-3) Basophils (%) (Auto) 0 % (0-3) Neutrophils # (Auto) 9.9 x10^3/uL (1.8-7.7) Lymphocytes # (Auto) 0.6 x10^3/uL (1.0-4.8) Monocytes # (Auto) 0.5 x10^3/uL (0.0-1.1) Eosinophils # (Auto) 0.1 x10^3/uL (0.0-0.7) Basophils # (Auto) 0.0 x10^3/uL (0.0-0.2) Segmented Neutrophils % 83 % (35-66) Band Neutrophils % 6 % (0-9) Lymphocytes % 8 % (24-48) Monocytes % 3 % (0-10) Platelet Estimate Adequate (ADEQUATE) Sodium Level 141 mmol/L (136-145) Potassium Level 4.4 mmol/L (3.5-5.1) Chloride Level 104 mmol/L (98-107) Carbon Dioxide Level 24 mmol/L (21-32) Anion Gap 13 (6-14) Blood Urea Nitrogen 11 mg/dL (8-26) Creatinine 1.0 mg/dL (0.7-1.3) Estimated GFR (Cockcroft-Gault) 78.2 Glucose Level 113 mg/dL (70-99) Calcium Level 8.4 mg/dL (8.5-10.1) Allergies Allergies Coded Allergies Type Severity Reaction Last Updated Verified No Known Drug Allergies 01/07/21 No Disposition/Orders: D/C to Home Justicifation of Admission Dx: Justifications for Admission: Justification of Admission Dx: Yes LYLE WALL MD Jan 08, 2021 11:56
--- NOTE | 2021-01-08 11:57 | DISCH ---
DISCHARGE INSTRUCTIONS Condition on Discharge Condition on Discharge: Stable Activity After Discharge Activity Instructions for Disc: Activity as tolerated Bathing Instructions: Shower-keep dressing dry, No Tub Bath until see Lifting Instructions after Dis: No heavy lifting, No pulling or pushing Driving Instructions after Dis: Do not drive today Diet after Discharge Diet after Discharge: Regular Liquid Texture: Thin Liquid Wound Incision Care Wound/Incision Care: May get incision wet Checks after Discharge Checks after discharge: Check blood press - daily Contacting the DRKayleigh after DC Call your doctor for: If your condition worsens Follow-Up Follow Up With: Dr. Vasquez in 2 weeks. Call for appointment. [phone] Treatment/Equipment after DC Adaptive Equipment Issued: None LYLE WALL MD Jan 08, 2021 11:57
--- NOTE | 2021-01-08 12:33 | NUR ---
Pt. discharged to home, verbalized understanding of discharge instructions. Lap sites x 3 CDI. Rx sent to pt's pharmacy.
== END 2021-01-08 12:25 | disposition home or self-care (01) | DRG 343 ==
LOC: 4 NORTH 11:29
PROVIDERS: ADMIT Family Medicine; ATTEND Surgery
PROC: 0DTJ4ZZ Resection of Appendix, Percutaneous Endoscopic Approach (ICD-10-PCS; principal; 2021-01-07 15:00)
DX: K35.80 Unspecified acute appendicitis (principal); I10 Essential (primary) hypertension; E78.5 Hyperlipidemia, unspecified; K76.0 Fatty (change of) liver, not elsewhere classified; F10.10 Alcohol abuse, uncomplicated; K38.1 Appendicular concretions; Z82.49 Family history of ischemic heart disease and other diseases of the circulatory system
CPT/HCPCS: 36415; 80048; 85007; 85025; A4314; A4364; A4452; A4930; A6219; J0780; J1100; J1644; J2270; J2405; J2704; J2710; J3010; J3490; J7120; G0378